=== PATIENT | male | born 1940 | race Hispanic/Latino ===

== ENCOUNTER 2016-08-11 09:05 | Day surgery (SDC) | payer MEDICARE, OTHER ==
[2016-08-09 07:48] VITALS: BMI 31.9
[2016-08-11 09:32] LABS: ADD MANUAL DIFF? NO
[2016-08-11 09:50] LABS: BASO # 0.03 K/mm3 (0.0-2.0); BASO % 0.5 % (0.0-3.0); EOS # 0.1 (0.0-0.7); GRAN # 2.63 (1.4-6.5); GRAN % 44.7 % (50.0-68.0); LYMPH # 2.5 (1.2-3.4); LYMPH % 42.4 % (22.0-35.0); MEAN CELL VOLUME 92.2 fL (80.0-105.0); MEAN CORPUSCULAR HEMOGLOBIN 31.4 pg (25.0-35.0); MEAN CORPUSCULAR HGB CONC 34.1 g/dl (31.0-37.0); MONO # 0.6 (0.1-0.6); MONO % 10.4 % (1.0-6.0); PLATELET COUNT 117 10^3/uL (120.0-450.0); WHITE BLOOD COUNT 5.9 10^3/ul (4.5-11.0)
[2016-08-11 09:58] LABS: BLOOD UREA NITROGEN 22 mg/dL (7-21); CALCIUM 9.6 mg/dL (8.4-10.5); CARBON DIOXIDE 29 mmol/L (21-33); CHLORIDE 106 mmol/L (98-107); CHOLESTEROL 165 mg/dL (130-200); GFR AFRICAN-AMERICAN > 60; GLUCOSE,RANDOM 102 mg/dL (70-110); INR 1.13 (0.93-1.08); PARTIAL THROMBOPLASTIN TIME 27.3 Seconds (23.7-30.8); POTASSIUM 4.5 mmol/L (3.6-5.0); SODIUM 141 mmol/L (132-148)
[2016-08-11] MEDS ORDERED: DiphenhydrAMINE 50 mg/ml Inj ONE (10:37)
[2016-08-11] MEDS ORDERED: Famotidine 20mg/50ml 20 MG/50 ML BAG IVPB ONE (10:37)
[2016-08-11] MEDS ORDERED: Iohexol 350 MG/100 ML VIAL ONE (11:11)
[2016-08-11] MEDS ORDERED: Lidocaine 2% Inj (20ml) ONE (11:11)
[2016-08-11] MEDS ORDERED: Midazolam 2 MG/2 ML VIAL ONE (11:32)
[2016-08-11] MEDS ORDERED: Sodium Chloride 0.45% 1,000 ML IV SCH (12:00)
[2016-08-11 14:02] VITALS: RESP 18
[2016-08-11 18:17] VITALS: PULSE 58
[2016-08-11 18:18] VITALS: BP 126/70; TEMP 98; O2SAT 97
--- NOTE | 2016-10-12 09:31 | CARD ---
APPROVED REPORT Procedure(s) performed: Left Heart Catheterization Complete Heart Catheterization Left Ventriculogram HISTORY 68%. (EF Method: RADIONUCLIDE), previous diagnostic cath, tobacco history() : The patient is a former smoker , hypertension , dyslipidemia . INDICATION The indication(s) include : positive stress test, stable angina (>72 hrs to = 7 days), abnormal ECG, dyspnea. CASE TECHNIQUE The patient was brought electively to the Cardiac Catheterization Laboratory in a fasting state and was prepped and draped in a sterile manner. The was infiltrated with 2% Lidocaine subcutaneous without difficulty. Coronary angiography was performed using coronary diagnostic catheters. The left coronary system was accessed and visualized with a Diagnostic catheter. The right coronary system was accessed and visualized with a Diagnostic catheter. The left ventricle was accessed and visualized with a Diagnostic catheter. The left internal mammary artery was accessed and visualized with a Diagnostic catheter. Left ventricular/Aortic Valve gradient assessed on pullback. Left ventriculogram was performed in [place] projection. Hemostasis was obtained with manual pressure following sheath removal without any complications. The patient tolerated the procedure well and there were no complications associated with the procedure. Vessel Analysis The patient's coronary anatomy is right dominant. The left main coronary artery is a medium size vessel without stenosis. The left main bifurcates to the left anterior descending and circumflex. The left anterior descending artery is a medium size vessel with intimal irregularities. The circumflex artery is a small size vessel . There is a 50% stenosis in the distal segment. The right coronary artery is a medium size vessel . There is a 50% stenosis in the distal segment. Left Ventricle The left ventricle is normal in size with normal contractility. There was no cardiomyopathy. The left ventricular ejection fraction is estimated to be 60%. Conclusion Noncritical CAD. Small vessel CAD. 'Normal left ventricular function. Recommendations Aggressive Medical Therapy Weight Loss Reduction ProgramMedical Therapy
== END 2016-08-11 18:10 | disposition home or self-care (01) ==
LOC: CATH 09:05
PROVIDERS: ATTEND Internal Medicine Cardiovascular Disease
DX: I25.10 Atherosclerotic heart disease of native coronary artery without angina pectoris (principal)
CPT/HCPCS: 36415; 80048; 80061; 85025; 85610; 85730; 86850; 86900; 93458; 99152; C1713; C1887 ×2; J1200; J1644; J2250; J2930; J3010; J7030; Q9967 ×2